=== PATIENT | male | born 1955 | race Caucasian/White ===

== ENCOUNTER 2017-04-30 08:47 | Emergency (ER) | payer OTHER ==
[~2017-04-30] VITALS: Ht 167.6 cm; Wt 83.9 kg
[~2017-04-30 08:47] MED LIST: BACTRIM DS TABL1 TAB PO; BLEPH-105 ML OU; IBUPROFEN800 MG PO; NO MEDICATIONS
== END 2017-04-30 09:20 | disposition home or self-care (01) ==
LOC: CED 08:47
DX: K08.89 Other specified disorders of teeth and supporting structures (principal)
CPT/HCPCS: 99282